=== PATIENT | male | born 1960 | race Caucasian/White ===

== ENCOUNTER → 2020-09-05 | Day surgery (SDC) | payer OTHER ==
[~2020-09-05] MED LIST: KETOROLAC TROME10 MG PO; PERCOCET 5-3251 EACH PO; SINEQUAN10 MG PO
== END | disposition home or self-care (01) ==
LOC: FAS 08:30
DX: I87.2 Venous insufficiency (chronic) (peripheral) (principal); F41.9 Anxiety disorder, unspecified; F32.9 Major depressive disorder, single episode, unspecified; F17.200 Nicotine dependence, unspecified, uncomplicated; J44.9 Chronic obstructive pulmonary disease, unspecified; Z85.038 Personal history of other malignant neoplasm of large intestine; Z88.5 Allergy status to narcotic agent; Z90.49 Acquired absence of other specified parts of digestive tract
CPT/HCPCS: J1100; J1885; J2250; J2405; J2704; J3010; J7120